=== PATIENT | female | born 1995 | race Caucasian/White ===

== ENCOUNTER 2019-07-01 18:58 | Emergency (ER) | payer OTHER, MEDICAID ==
[~2019-07-01] VITALS: Ht 167.6 cm; Wt 73.5 kg
[~2019-07-01 18:58] MED LIST: HYDROXYZINE HCL25 M1 PO; MEDROLDOSEPACK PO; TRIAMCINOLONE A80 G2 TOP
[2019-07-01 19:25] LABS: URINE BILIRUBIN NEGATIVE (Negative); URINE BLOOD 1+ (Negative); URINE CLARITY CLEAR; URINE COLOR YELLOW; URINE GLUCOSE-RANDOM NEGATIVE (Negative); URINE KETONES NEGATIVE (Negative); URINE LEUKOCYTES-REFLEX TRACE (Negative); URINE NITRITE-REFLEX POSITIVE (Negative); URINE PROTEIN NEGATIVE (Negative); URINE SPECIFIC GRAVITY >= 1.030 (1.005-1.030); URINE UROBILINOGEN 0.2 E.U./dl (0.2-1.0)
[2019-07-01 19:30] LABS: BACTERIA-REFLEX >30 Many /HPF (None Seen); MUCUS 0-3 Light strn/LPF (None Seen); SQUAMOUS >10 Many /LPF (0-3)
[2019-07-01 19:31] LABS: CASTS None Seen /LPF (None Seen); CRYSTALS None Seen /LPF (None Seen); URINE RBC 0-2 Rare /HPF (0-2); URINE WBC-REFLEX 6-15 Few /HPF (0-5)
[2019-07-01] MEDS ORDERED: AUGMENTIN 500-1 EACH PO (19:39)
[2019-07-01] MEDS ORDERED: PYRIDIUM200 MG PO (19:39)
[2019-07-01 20:08] VITALS: BP 147/80
== END 2019-07-01 20:09 | disposition home or self-care (01) ==
LOC: M.ERS 18:58
PROVIDERS: Nurse Practitioner Family
DX: N39.0 Urinary tract infection, site not specified (principal); M41.9 Scoliosis, unspecified; Z98.890 Other specified postprocedural states

== ENCOUNTER 2020-04-06 09:52 | Emergency (ER) | payer OTHER, MEDICAID ==
[~2020-04-06] VITALS: Ht 160 cm; Wt 78.5 kg
[~2020-04-06 09:52] MED LIST changes: +AUGMENTIN 500-1 EACH PO; +PYRIDIUM200 MG PO
[2020-04-06 11:24] VITALS: BP 127/82
== END 2020-04-06 11:25 | disposition home or self-care (01) ==
LOC: M.ERS 09:52
DX: J06.9 Acute upper respiratory infection, unspecified (principal); Z20.828 Contact with and (suspected) exposure to other viral communicable diseases; Z90.49 Acquired absence of other specified parts of digestive tract

== ENCOUNTER 2021-07-11 16:54 | Emergency (ER) | payer OTHER, MEDICAID ==
[~2021-07-11] VITALS: Ht 162.6 cm; Wt 90.7 kg
[2021-07-11 16:57] VITALS: BP 151/92
[2021-07-11 17:33] LABS: INFLUENZA A ANTIGEN Negative (Negative); INFLUENZA B ANTIGEN Negative (Negative)
[2021-07-11] MEDS ORDERED: PROAIR HFA8.5 GM INH (17:49)
[2021-07-11] MEDS ORDERED: MEDROLDOSEPACK PO (17:49)
[2021-07-11] MEDS ORDERED: TESSALON PERLE100 MG PO (17:49)
--- NOTE | 2021-07-13 11:06 | EKG ---
[place] [address] ELECTROCARDIOGRAM REPORT Name: MARIANELA KEY Room: [facility]#: [id number] Admission: 07/11/21 Attend Phys: Discharge: 07/11/21 Date of : [birth year] Date of Service: 07/11/21 1656 Report #: [id number] THIS REPORT FOR: //name// [facility] ED Test Date: 2021-07-11 Test Time: 16:56:44 Pat Name: MARIANELA KEY Department: Room: Gender: F Licensed Occupational Therapist: : 1995 Requested By: Alvarado Motta Order Number: [id number] MD: Ibrahima Sanabria Measurements Intervals Dafter Rate: 96 P: 54 AK: 198 QRS: 46 QRSD: 99 T: 19 QT: 343 QTc: 434 Interpretive Statements Sinus rhythm Borderline prolonged AK interval No previous ECG available for comparison Electronically Signed On 07-13-2021 11:06:41 OBJECT ORIENTED PROGRAMMER by Ibrahima Sanabria [email or web address] <ELECTRONICALLY SIGNED> By: Unruly Sanabria MD, [facility] 07/13/21 1106 55 55 Unruly Sanabria MD, [facility] /EPI
== END 2021-07-11 17:54 | disposition home or self-care (01) ==
LOC: M.ERS 16:54
PROVIDERS: Physician Assistant
DX: J06.9 Acute upper respiratory infection, unspecified (principal); Z20.822 Contact with and (suspected) exposure to COVID-19; Z90.89 Acquired absence of other organs; Z98.890 Other specified postprocedural states